=== PATIENT | male | born 1945 | race Caucasian/White ===

== ENCOUNTER 2019-11-15 15:35 | Emergency (ER) | payer MEDICARE ==
[2019-11-15 16:08] VITALS: BP 166/76
[2019-11-15] MEDS ORDERED: MORPHINE SULFATE 10 MG/ML INJ IV ONE (16:47)
[2019-11-15] MEDS ORDERED: ONDANSETRON HCL INJ/PF 4 MG/2 ML SDV IV ONE (16:47)
--- NOTE | 2019-11-15 16:49 | ER Document Report ---
ED Medical Screen (RME) - General Chief Complaint: Abdominal Pain Stated Complaint: ABDOMINAL PAIN/SWELLING Time Seen by Provider: 11/15/19 16:46 Mode of Arrival: Ambulatory Information source: Patient Notes: HPI; 74-year-old male presents to the emergency room complaining of abdominal pain and swelling status post hernia repair 1 week ago. States has not had a bowel movement since his surgery. Has been taking stool softeners and oxycodone without relief. States he ran out of the oxycodone and the surgeon will not refill it. Cannot get an appointment until next week. Has been taking Tylenol without relief. Denies fevers. PE: Alert and oriented x3. Moderate distress noted. Lungs: Clear to auscultation without rales, rhonchi, wheezes. Heart: Regular rate rhythm without murmurs, rubs, gallops. I have greeted and performed a rapid initial assessment of this patient. A comprehensive ED assessment and evaluation of the patient, analysis of test results and completion of the medical decision making process will be conducted by additional ED providers. I have specifically instructed the patient or family members with the patient to immediately return to any nursing staff should anything change in the patient's condition or with their chief complaint. TRAVEL OUTSIDE OF THE [place] IN LAST 30 DAYS: No Physical Exam - Vital signs Vitals: Temp Pulse Resp BP Pulse Ox 97.5 F 99 20 166/76 H 97 11/15/19 16:07 11/15/19 16:07 11/15/19 16:07 11/15/19 16:07 11/15/19 16:07 Course - Vital Signs Vital signs: Temp Pulse Resp BP Pulse Ox 97.5 F 99 20 166/76 H 97 11/15/19 16:07 11/15/19 16:07 11/15/19 16:07 11/15/19 16:07 11/15/19 16:07
[2019-11-15 18:04] LABS: APPEARANCE,URINE CLEAR; BILIRUBIN,URINE NEGATIVE (NEGATIVE); COLOR,URINE AMBER; GLUCOSE, URINE NEGATIVE (NEGATIVE); KETONES,URINE TRACE mg/dL (NEGATIVE); LEUKOCYTE ESTERASE,URINE NEGATIVE (NEGATIVE); NITRITE,URINE NEGATIVE (NEGATIVE); PROTEIN,URINE NEGATIVE (NEGATIVE); URINE SPECIFIC GRAVITY 1.026
[2019-11-15 18:11] LABS: ABSOLUTE BASOPHILS # (AUTO) 0.1 10^3/uL (0.0-0.2); ABSOLUTE EOSINOPHILS # (AUTO) 0.2 10^3/uL (0.0-0.6); ABSOLUTE LYMPHOCYTES (AUTO) 1.7 10^3/uL (0.5-4.7); ABSOLUTE MONOCYTES (AUTO) 0.7 10^3/uL (0.1-1.4); BASOPHILS % (AUTO) 0.5 % (0-2); EOSINOPHILS % (AUTO) 1.4 % (0-6); HEMOGLOBIN 13.7 g/dL (13.5-17.0); LYMPHOCYTES % (AUTO) 14.5 % (13-45); MEAN CORPUSCULAR HEMOGLOBIN 30.9 pg (27.0-33.4); MEAN CORPUSCULAR HGB CONC 35.2 g/dL (32.0-36.0); MEAN CORPUSCULAR VOLUME 88 fl (80-97); PLATELET COUNT 382 10^3/uL (150-450); RED BLOOD COUNT 4.44 10^6/uL (4.35-5.55); SEGMENTED NEUTROPHILS % (AUTO) 77.6 % (42-78); TOTAL CELLS COUNTED % (AUTO) 100 %; WHITE BLOOD COUNT 11.6 10^3/uL (4.0-10.5)
[2019-11-15 18:29] LABS: ALBUMIN 4.2 g/dL (3.5-5.0); ALKALINE PHOSPHATASE 121 U/L (38-126); ANION GAP 13 (5-19); ASPARTATE AMINO TRANSFERASE 51 U/L (17-59); BILIRUBIN,DIRECT 0.5 mg/dL (0.0-0.4); BILIRUBIN,TOTAL 1.9 mg/dL (0.2-1.3); BLOOD UREA NITROGEN 28 mg/dL (7-20); CALCIUM 9.1 mg/dL (8.4-10.2); CARBON DIOXIDE 25 mmol/L (22-30); CHLORIDE 99 mmol/L (98-107); GLUCOSE 134 mg/dL (75-110); POTASSIUM 4.3 mmol/L (3.6-5.0); TOTAL PROTEIN 7.4 g/dL (6.3-8.2)
--- NOTE | 2019-11-15 19:10 | ER Document Report ---
ED General - General Chief Complaint: Abdominal Pain Stated Complaint: ABDOMINAL PAIN/SWELLING Time Seen by Provider: 11/15/19 16:46 Mode of Arrival: Ambulatory TRAVEL OUTSIDE OF THE [place] IN LAST 30 DAYS: No - HPI Notes: Patient is a 74-year-old male who presents to the emergency department for evaluation. He is 9 days status post hernia repair on the right. He states it was done in [place]. He states he took Percocet for his pain following the surgery, got it refilled, now that "Dr. Allen even talk to me." He has not had a bowel movement since the surgery, states he is passing "a little" gas. He denies any lois fevers, states he is felt hot and cold intermittently. No nausea or vomiting. He is been trying Tylenol for his pain without any significant relief. He states that, with the exception of the surgery, he has not seen a doctor in over 50 years. Past Medical History - General Information source: Patient - Social History Smoking Status: Never Smoker Frequency of alcohol use: None Drug Abuse: None Family History: Reviewed & Not Pertinent Past Surgical History: Reports: Hx Herniorrhaphy Review of Systems - Review of Systems Constitutional: See HPI EENT: No symptoms reported Cardiovascular: No symptoms reported Respiratory: No symptoms reported Gastrointestinal: See HPI Genitourinary: No symptoms reported Musculoskeletal: No symptoms reported Skin: No symptoms reported Neurological/Psychological: No symptoms reported Physical Exam - Vital signs Vitals: Temp Pulse Resp BP Pulse Ox 97.5 F 99 20 166/76 H 97 11/15/19 16:07 11/15/19 16:07 11/15/19 16:07 11/15/19 16:07 11/15/19 16:07 - Notes Notes: This is a very anxious appearing 74-year-old male, who appears his stated age, in a mild amount of distress. Vital signs reviewed, please refer to chart. Head is normocephalic, atraumatic. Pupils equal round, reactive to light. Neck is supple without meningismus. Heart is regular rate and rhythm. Lungs are clear to auscultation bilaterally. Abdomen reveals bandage in place in the right lower abdomen, horizontal, with surrounding edema, erythema, ecchymosis. Ecchymosis tracks into the scrotum. He has tenderness without rebound or gu arding. Normoactive bowel sounds. Extremities without cyanosis, clubbing. Posterior calves are nontender. Peripheral pulses are equal. Skin is warm and dry. Patient is awake, alert, neurological exam is nonfocal. Course - Re-evaluation Re-evalutation: 11/15/19 19:10 Patient presents to the emergency department for evaluation. Laboratory investigations were ordered as through triage. They were largely unremarkable. I did order a KUB. The patient was administered morphine, Zofran. We will evaluate for degree of constipation, continue to monitor. 11/15/19 21:54 Patient has a moderate amount of constipation. He was only doing stool softeners at home. He was offered an enema. He was given this enema, got about 200 and, when he stated that he had to have a bowel movement. He was unsuccessful, but became very agitated. Stated he wanted to go home and try the enema himself. He states he already knows how to do this. I will also send him home with some magnesium citrate. I explained to him that I believe that the narcotics were responsible for his significant constipation, I do not believe that they are a perry choice at this time, recommended Tylenol or ibuprofen as needed for pain, ibuprofen specifically with food. He voiced understanding of his discharge. - Vital Signs Vital signs: Temp Pulse Resp BP Pulse Ox 97.5 F 99 20 166/76 H 97 11/15/19 16:07 11/15/19 16:07 11/15/19 16:07 11/15/19 16:07 11/15/19 16:07 - Laboratory Result Diagrams: 11/15/19 17:57 11/15/19 17:57 Laboratory results interpreted by me: 11/15/19 11/15/19 11/15/19 17:16 17:57 17:57 WBC 11.6 H Absolute Neuts (auto) 9.0 H BUN 28 H Glucose 134 H Total Bilirubin 1.9 H Direct Bilirubin 0.5 H Urine Ketones TRACE H Urine Urobilinogen 2.0 H - Diagnostic Test Radiology reviewed: Image reviewed, Reports reviewed Radiology results interpreted by me: 11/15/19 21:54 KUB X-Ray 11/15/19 19:04 IMPRESSION: Moderate fecal material in the colon consistent with constipation Discharge - Discharge Clinical Impression: Postoperative abdominal pain Constipation Qualifiers: Constipation type: drug induced constipation Qualified Code(s): K59.03 - Drug induced constipation Condition: Stable Disposition: HOME, SELF-CARE Instructions: Abdominal Pain ([facility]), Constipation ([facility]) Additional Instructions: You can try the enema at home. If you are unsuccessful, please drink the entire bottle of magnesium citrate in one sitting to induce a bowel movement. Please note this can cause cramping, and it is advisable that you do it when you have several hours to remain at home, near the bathroom. Tylenol as needed for severe pain. Follow-up with your surgeon this week. Return to the emergency department with worsening or new concerning symptoms of any sort.
--- NOTE | 2019-11-15 20:17 | RADIOLOGY REPORT (SQ) ---
EXAM DESCRIPTION: XR ABDOMEN 1 VIEW (KUB) COMPLETED DATE/TME: 11/15/2019 19:04 CLINICAL HISTORY: 74 years Male ,constipation COMPARISON: None. TECHNIQUE: Single view of the abdomen was provided.. FINDINGS:Upper abdomen incompletely included on the image. No dilated loops of bowel to suggest obstruction. Moderate fecal material in the colon consistent with constipation. Phleboliths in the pelvis. IMPRESSION: Moderate fecal material in the colon consistent with constipation
[2019-11-15] MEDS ORDERED: MINERAL OIL 30 ML UDCUP PR ONE (20:29)
[2019-11-15] MEDS ORDERED: MAGNESIUM CITRATE 296 ML BOTTLE PO ONE (21:55)
== END 2019-11-15 22:14 | disposition home or self-care (01) ==
LOC: ER 15:35
DX: G89.18 Other acute postprocedural pain (principal); R10.9 Unspecified abdominal pain; K59.03 Drug induced constipation
CPT/HCPCS: 99284; 96374; 96375; 36415; 85025; 80053; 81001; 74018; A9270 ×2; J2270; J2405; J3490